=== PATIENT | female | born 1975 | race African-American/Black ===

== ENCOUNTER 2018-09-28 23:03 | Inpatient (IN) | payer BC, OTHER ==
[~2018-09-28] VITALS: Ht 162.6 cm; Wt 107.9 kg
--- NOTE | ~2018-09-28 | PATH ---
[facility] [address] [place] [address] PATHOLOGY RPT PROCEDURE Name: BAO CHAIREZ Room #: 200-I DIS IN M.R.#: [id number] Admission: 09/29/18 Date of : 73 Discharge: 10/01/18 Report #: [id number] Path Case #: [id number] [facility] Accession Number: [id number] . 01 Material submitted: . PART A: GASTRIC BIOPSIES R/O H PYLORI PART B: ESOPHAGEAL BIOPSIES R/O GOLDMAN'S . 01 Clinical history: . Pre-OP DX: Epigastric pain, nausea Post-OP DX: Gastritis, possible Goldman's esophagus . 02 Diagnosis: A. Gastric mucosa, gastric rule out H. pylori, endoscopic biopsy: - Mild chronic active gastritis with features of reactive gastropathy. - Negative for intestinal metaplasia or atrophy. - Negative for Helicobacter pylori (properly controlled immunohistochemical stain performed). . B. Gastroesophageal mucosa, esophagus rule out Goldman's, endoscopic biopsy: - Gastric cardia-type mucosa with moderate chronic inflammation. - Squamous mucosa with mild esophagitis and features compatible with reflux esophagitis. - Negative for intestinal metaplasia or dysplasia. (IUV/db; 10/01/18) LBQ/10/01/2018 . 02 Electronically signed: . Janae Wheeler MD, Pathologist NPI- [id number] . 01 Gross description: . A. Received in formalin labeled "Bao Chairez, gastric biopsies, rule out H. pylori," are 5 segments of lewis soft tissue measuring 1.0 x 0.9 x 0.3 cm in aggregate dimensions and ranging from 0.3 to 0.8 cm in maximum dimension. The specimen is submitted entirely in cassette A1. . B. Received in formalin labeled "Bao Chairez, esophageal biopsies, rule out Goldman's," are 3 segments of lewis soft tissue measuring 0.9 x 0.6 x 0.2 cm in aggregate dimensions and ranging from 0.3 to 0.4 cm in maximum dimension. The specimen is submitted entirely in cassette B1. (TSD; 09/30/2018) TOB/TOB . 02 Pathologist provided ICD-10: K29.50, K31.9, K21.0 [place] [address] PATHOLOGY RPT PROCEDURE Name: BAO CHAIREZ Xiao Room #: 200-I DIS IN M.R.#: [id number] Admission: 09/29/18 Date of : 73 Discharge: 10/01/18 Report #: [id number] Path Case #: [id number] . 02 CPT . [id number], [id number], [id number] Specimen Comment: A courtesy copy of this report has been sent to Specimen Comment: [phone], , . Specimen Comment: Report sent to , DR NI / DR PINO Specimen Comment: A duplicate report has been generated due to demographic updates. Performed at: [address] [facility] [address], [place] [id number] MD Lucius Fuller MD Phone: [phone] Performed at: [address] [facility] [id number] MD Janae Wheeler MD Phone: [phone]
--- NOTE | ~2018-09-28 | EKG ---
[place] [address] [facility] [place] [address] ELECTROCARDIOGRAM REPORT Name: BAO CHAIREZ Room #: [facility]#: [id number] Admission: 09/28/18 Attend Phys: Discharge: Date of : 73 Report #: [id number] THIS REPORT FOR: //name// 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1975 Requested By: Natanael Trejo Order Number: [id number] MD: Anjel Webster Measurements Intervals [place] Rate: 57 P: 28 NE: 191 QRS: 9 QRSD: 87 T: 58 QT: 429 QTc: 418 Interpretive Statements Sinus rhythm Nonspecific ST/T abnormalities Baseline wander in lead(s) V2 Compared to ECG 09/17/2011 17:36:39 no significant changes Electronically Signed On 09-28-2018 23:55:32 STERILIZATION TECH by Anjel Webster [email or web address] <ELECTRONICALLY SIGNED> By: Anjel Webster MD 09/28/18 9785 D: 11/2306 06 Anjel Webster MD /DANNIE
--- NOTE | ~2018-09-28 | 2DMMODE ---
[facility] [address] [place] [address] 2 D/M-MODE ECHOCARDIOGRAM Name: BAO CHAIREZ Room #: 200-I ADM IN [facility]#: [id number] Admission: 09/29/18 Attend Phys: Mike Rosario MD Discharge: Date of : 73 Date of Service: 09/29/18 1314 Report #: [id number] THIS REPORT FOR: //name// APPROVED REPORT Study performed: 09/29/2018 09:09:02 EXAM: Comprehensive 2D, Doppler, and color-flow Echocardiogram Patient Location: In-Patient Room #: 200 Status: routine BSA: 2.06 HR: 60 bpm BP: 151/85 mmHg Rhythm: NSR Other Information Study Quality: Good Risk Factors: Cardiac Risk Factors: HTN Indications Dyspnea Chest Pain 2D Dimensions IVSd: 10.34 (7-11mm) LVOT Diam: 20.00 (18-24mm) LVDd: 31.10 mm PWd: 10.05 (7-11mm) Ascending Ao: 26.40 (22-36mm) LVDs: 21.85 (25-40mm) Aortic Root: 23.45 mm LV Single Plane 4CH: 62.70 % LV Single Plane 2CH: 58.85 % Biplane EF: 60.1 % Volumes Left Atrial Volume (Systole) Single Plane 4CH: 31.66 mL Single Plane 2CH: 37.06 mL LA ESV Index: 19.00 mL/m2 Aortic Valve AoV Peak Eleazar.: 1.23 m/s AO Peak Gr.: 6.06 mmHg LVOT Max P.13 mmHg LVOT Max V: 1.02 m/s [facility] [address] [place] [address] 2 D/M-MODE ECHOCARDIOGRAM Name: BAO CHAIREZ Room #: 200-I [facility] IN [facility]#: [id number] Admission: 09/29/18 Attend Phys: Mike Rosario MD Discharge: Date of : 73 Date of Service: 09/29/18 1314 Report #: [id number] ALEXANDREA Vmax: 2.53 cm2 Mitral Valve E/A Ratio: 1.1 MV Decel. Time: 229.47 ms MV E Max Eleazar.: 0.78 m/s MV A Eleazar.: 0.70 m/s MV PHT: 66.55 ms IVRT: 73.82 ms TDI E/Lateral E': 8.67 E/Medial E': 8.67 Medial E' Eleazar.: 0.09 m/s Lateral E' Eleazar.: 0.09 m/s Pulmonary Valve PV Peak Eleazar.: 1.02 m/s PV Peak Gr.: 4.19 mmHg Pulmonary Vein P Vein S: 0.48 m/s P Vein A: 0.26 m/s P Vein D: 0.40 m/s P Vein A Dur.: 115.3 msec P Vein S/D Ratio: 1.20 Tricuspid Valve TR Peak Eleazar.: 2.02 m/s RAP Estimate: 7.00 mmHg TR Peak Gr.: 16.33 mmHg PA Pressure: 23.00 mmHg Left Ventricle The left ventricle is normal size. There is normal LV segmental wall motion. There is normal left ventricular wall thickness. Left ventricular systolic function is normal. The left ventricular ejection fraction is within the normal range. LVEF is 60-65%. The left ventricular diastolic function is normal. Right Ventricle The right ventricle is normal size. The right ventricular systolic function is normal. Atria The left atrium size is normal. The right atrium size is normal. Aortic Valve The Aortic valve is mildly sclerotic. No aortic regurgitation is present. There is no aortic valvular stenosis. [facility] [address] [address] 2 D/M-MODE ECHOCARDIOGRAM Name: BAO CHAIREZ Room #: 200-I ADM IN [facility]#: [id number] Admission: 09/29/18 Attend Phys: Mike Rosario MD Discharge: Date of : 73 Date of Service: 09/29/18 1314 Report #: [id number] Mitral Valve The mitral valve is normal in structure. Trace mitral regurgitation. No evidence of mitral valve stenosis. Tricuspid Valve The tricuspid valve is normal in structure. Trace tricuspid regurgitation. Pulmonary artery pressure is 23 mmHg. Pulmonic Valve The pulmonary valve is normal in structure. Mild pulmonic regurgitation. Great Vessels The aortic root is normal in size. IVC is normal in size and collapses >50% with inspiration. Pericardium There is no pericardial effusion. <Conclusion> 1. Normal echocardiogram with Doppler. EF 60-65% 2. No pericardial effusion <ELECTRONICALLY SIGNED> By: Jonathan Rosas MD, FACC 09/29/181313 13 13 Jonathan Rosas MD, FACC /INF
[~2018-09-28 23:03] MED LIST: ABILIFY30 MG PO; BUPROPION XL150 MG PO; CLONAZEPAM PO; FLEXERIL PO; HCTZ; IRON236 MG PO; NORCO 5-325 TA1 EACH PO; PRINIVIL40 MG PO
[2018-09-28 23:04] VITALS: BP 177/105
[2018-09-28] MEDS ORDERED: COZAAR 25 MG TA25 M1 PO (23:10)
[2018-09-28] MEDS ORDERED: AMLODIPINE BESY10 MG PO (23:11)
[2018-09-28] MEDS ORDERED: AVAPRO75 MG PO (23:12)
[2018-09-28] MEDS ORDERED: TRAZODONE HCL100 MG PO (23:12)
[2018-09-28] MEDS ORDERED: EXCEDRIN CAPLE1 EACH PO (23:13)
[2018-09-28] MEDS ORDERED: MUCUS RELIEF400 MG (23:13)
[2018-09-28] MEDS ORDERED: ADDERALL XR 3030 MG PO (23:14)
[2018-09-28] MEDS ORDERED: TOPAMAX 25 MG T25 M1 PO (23:14)
[2018-09-28 23:22] LABS: ABSOLUTE NEUTROPHILS 5.7 thou/uL (1.4-8.2); BASOPHILS 0.6 % (0.0-2.0); EOSINOPHILS 2.4 % (0.0-3.0); HEMATOCRIT 40.9 % (37.0-47.0); HEMOGLOBIN 14.1 gm/dL (12.0-15.0); LYMPHOCYTES 27.4 % (24.0-44.0); MCH 31.2 pg (26.0-34.0); MCHC 34.4 g/dL (28.0-37.0); MCV 90.8 fL (80.0-100.0); MONOCYTES 7.2 % (1.0-8.0); PLATELET COUNT 297 thou/uL (150-400); POLYS 62.4 % (36.0-66.0); RBC 4.51 mil/uL (4.20-5.00); RDW 13.9 % (10.5-14.5); WBC 9.2 thou/uL (4.0-11.0)
[2018-09-28 23:30] LABS: ANION GAP 8 mmol/L (7-16); BUN 13 mg/dL (7-18); CALCIUM 9.6 mg/dL (8.5-10.1); CHLORIDE 101 mmol/L (98-107); CO2 26 mmol/L (21-32); CREATININE 1.2 mg/dL (0.6-1.0); GLUCOSE 130 mg/dL (74-106); POTASSIUM 3.7 mmol/L (3.5-5.1); SODIUM 135 mmol/L (136-145)
[2018-09-28 23:38] LABS: ALBUMIN 3.8 g/dL (3.4-5.0); MAGNESIUM 1.8 mg/dL (1.8-2.4); SGOT 12 U/L (15-37); SGPT 22 U/L (30-65); TOTAL BILIRUBIN 0.3 mg/dL (<0.1-1.0); TOTAL PROTEIN 7.5 g/dL (6.4-8.2); TROPONIN-I <0.06 ng/mL (<0.06)
[2018-09-29] VITALS (7 sets, daily range): BP systolic 111–163; BP diastolic 75–92
[2018-09-29] MEDS ORDERED: CYMBALTA60 MG PO (04:24)
[2018-09-29] MEDS ORDERED: ZOLOFT50 MG PO (04:25)
[2018-09-29] MEDS ORDERED: ZANAFLEX4 MG PO (04:26)
[2018-09-29 05:21] LABS: ANION GAP 13 mmol/L (7-16); BUN 13 mg/dL (7-18); CALCIUM 9.2 mg/dL (8.5-10.1); CHLORIDE 103 mmol/L (98-107); CHOLESTEROL 179 mg/dL (<200); CO2 23 mmol/L (21-32); CREATININE 1.1 mg/dL (0.6-1.0); GLUCOSE 141 mg/dL (74-106); HDL CHOLESTEROL 50 mg/dL (>40); LDL CHOLESTEROL 113 mg/dL (<100); POTASSIUM 3.2 mmol/L (3.5-5.1); SODIUM 139 mmol/L (136-145); TC:HDL 3.6 Ratio (Not establshd); TRIGLYCERIDE 83 mg/dL (<150); VLDL 17 mg/dL (<40)
[2018-09-29 05:22] LABS: SERUM ASSESSMENT Clear
[2018-09-29 22:06] LABS: GLYCOHEMOGLOBIN (HGB A1C) 5.9 % (4.8-5.6)
[2018-09-30 04:05] LABS: ABSOLUTE NEUTROPHILS 6.7 thou/uL (1.4-8.2); BASOPHILS 0.4 % (0.0-2.0); EOSINOPHILS 1.6 % (0.0-3.0); HEMATOCRIT 39.8 % (37.0-47.0); HEMOGLOBIN 13.3 gm/dL (12.0-15.0); MCH 30.6 pg (26.0-34.0); MCHC 33.3 g/dL (28.0-37.0); MONOCYTES 6.2 % (1.0-8.0); PLATELET COUNT 271 thou/uL (150-400); POLYS 69.8 % (36.0-66.0); RBC 4.33 mil/uL (4.20-5.00); RDW 14.2 % (10.5-14.5); WBC 9.6 thou/uL (4.0-11.0)
[2018-09-30 04:18] LABS: ALBUMIN 3.5 g/dL (3.4-5.0); CALCIUM 8.5 mg/dL (8.5-10.1); DIRECT BILIRUBIN 0.1 mg/dL (<0.1-0.3); POTASSIUM 3.6 mmol/L (3.5-5.1); TOTAL BILIRUBIN 0.5 mg/dL (<0.1-1.0); TOTAL PROTEIN 6.8 g/dL (6.4-8.2)
[2018-09-30 05:35] VITALS: BP 131/91
[2018-09-30 07:10] VITALS: BP 141/83
[2018-09-30 12:10] VITALS: BP 133/85
[2018-09-30 15:15] VITALS: BP 139/101
[2018-09-30 20:14] VITALS: BP 121/83
[2018-10-01 04:44] VITALS: BP 118/63
[2018-10-01 08:30] VITALS: BP 127/94
[2018-10-01] MEDS ORDERED: PANTOPRAZOLE SO40 M1 PO (09:26)
[2018-10-01 11:59] VITALS: BP 118/77
[2018-10-01 12:03] VITALS: BP 118/77
== END 2018-10-01 13:49 | disposition home or self-care (01) | DRG 202 ==
LOC: ER 23:03 → 2N 09-29 00:21 → EROBS 09-29 00:21 → 2N 09-29 01:03 → ENTRNSPT 10-01 13:06 → EDTRNSPTSTS 10-01 13:09 → 2N 10-01 13:49
PROVIDERS: Emergency Medicine; Family Medicine; Nurse Practitioner Family
PROC: 0DB58ZX Excision of Esophagus, Via Natural or Artificial Opening Endoscopic, Diagnostic (ICD-10-PCS; principal; 2018-09-30)
PROC: 0DB68ZX Excision of Stomach, Via Natural or Artificial Opening Endoscopic, Diagnostic (ICD-10-PCS; principal; 2018-09-30)
DX: J20.8 Acute bronchitis due to other specified organisms (principal); Z68.41 Body mass index [BMI] 40.0-44.9, adult; K22.70 Barrett's esophagus without dysplasia; K22.4 Dyskinesia of esophagus; K29.70 Gastritis, unspecified, without bleeding; K29.80 Duodenitis without bleeding; J06.9 Acute upper respiratory infection, unspecified; K25.9 Gastric ulcer, unspecified as acute or chronic, without hemorrhage or perforation; M94.0 Chondrocostal junction syndrome [Tietze]; I10 Essential (primary) hypertension; K21.9 Gastro-esophageal reflux disease without esophagitis; E66.9 Obesity, unspecified; F41.9 Anxiety disorder, unspecified; F32.9 Major depressive disorder, single episode, unspecified; F90.9 Attention-deficit hyperactivity disorder, unspecified type; E78.5 Hyperlipidemia, unspecified; E87.6 Hypokalemia; Z23 Encounter for immunization; Z82.49 Family history of ischemic heart disease and other diseases of the circulatory system; Z83.3 Family history of diabetes mellitus; Z79.82 Long term (current) use of aspirin; Z79.899 Other long term (current) drug therapy
CPT/HCPCS: 10081; 62110; 62900